=== PATIENT | female | born 1960 | race Caucasian/White ===

== ENCOUNTER → 2023-06-11 08:27 | Outpatient (REF) | payer OTHER, SELFPAY | LOC: HWWDC 08:27 | PROVIDERS: ATTENDING PHYSICIAN Nurse Practitioner Women's Health; FAMILY PHYSICIAN Family Medicine | DX: Z12.31 Encounter for screening mammogram for malignant neoplasm of breast (principal) | CPT/HCPCS: 77063; 77067 ==

== ENCOUNTER → 2023-07-05 15:45 | Outpatient (REF) | payer OTHER, SELFPAY | LOC: HWRAD 15:45 | PROVIDERS: ATTENDING PHYSICIAN Family Medicine | DX: M79.89 Other specified soft tissue disorders (principal) | CPT/HCPCS: 74176 ==

== ENCOUNTER → 2023-09-02 06:35 | Day surgery (SDC) | payer OTHER, SELFPAY | LOC: GI 06:35 | PROVIDERS: ATTENDING PHYSICIAN Internal Medicine Gastroenterology; FAMILY PHYSICIAN Family Medicine | DX: Z12.11 Encounter for screening for malignant neoplasm of colon (principal); K57.30 Diverticulosis of large intestine without perforation or abscess without bleeding; Q43.8 Other specified congenital malformations of intestine; K64.8 Other hemorrhoids; K29.70 Gastritis, unspecified, without bleeding; K20.90 Esophagitis, unspecified without bleeding; K44.9 Diaphragmatic hernia without obstruction or gangrene; K31.89 Other diseases of stomach and duodenum; R12 Heartburn; Z86.010 Personal history of colon polyps | CPT/HCPCS: 43239; G0105; 88305; 88342 ==

== ENCOUNTER 2023-09-09 06:07 | Day surgery (SDC) | payer OTHER, SELFPAY ==
[2023-09-09] VITALS (8 sets, daily range): BP systolic 123–135; BP diastolic 64–76; BMI 19.8
[2023-09-09] MEDS: NORMOSOL-R 1000 IV (07:24)
[2023-09-09] MEDS: TYLENOL 1000 MG PO (07:24)
--- NOTE | 2023-09-09 08:54 | W.SUR.PREOP ---
Pre-Operative Surgical Note
-
I have examined this patient prior to the performance of the scheduled procedure.
The patient's condition is unchanged from the time of the current History and
Physical and the patient is able to undergo the scheduled procedure.
--- NOTE | 2023-09-09 08:54 | W.IMMPOSTOP ---
Surgical Immed Post Op Note
-
Primary Surgeon: Nj Franklin MD
Assisting Surgeon: Vinod Jimenes, PGY 1
Pre-op Diagnosis: Right inguinal hernia
Post-op Diagnosis: Same
Procedure Performed: Open right inguinal hernia repair with mesh
Anesthesia Type: General
Specimen / Cultures: Right inguinal contents
Estimated Blood Loss: 1 cc
Complications: None
Operative Findings: Small direct inguinal hernia. No indirect components. No cord lipoma. Genital branch of the genitofemoral nerve, as well as the round ligament were identified and sacrificed.
--- NOTE | 2023-09-09 08:57 | OR.RPT ---
Operative Report
Operative Report
Patient Name: Chapis Baez
: 1960
Date of Operation: 09/09/2023
Preoperative Diagnosis: Reducible Inguinal hernia, right
Postoperative Diagnosis: Same
Procedure(s):
Open Inguinal Hernia Repair
Surgeon(s):
Dr. Franklin
Marketing Operations Analyst(s):
Vinod Jimenes, PGY1
Anesthesia: General
Estimated Blood Loss: 1 cc
Urine Output: None
Drains/Lines/Implants: 3 x 6 inch Bard Soft Mesh (uncoated macroporous polypropylene mesh) cut to size
Specimens: None
Indication for surgery: The patient has a history of groin pain and some asymmetry noted on exam and was found to have a left inguinal Hernia. Following review of therapeutic options they has elected to undergo an open repair
Operative Findings: Small direct inguinal hernia. No indirect components. No cord lipoma. Genital branch of the genitofemoral nerve, as well as the round ligament were identified and sacrificed. The floor reinforced with Bard soft mesh cut to
size.
Details of the operation:
After induction of general anesthesia, the patient was clipped, prepped and draped in the supine position. A team timeout was performed confirming administration of DVT prophylaxis, IV antibiotics and SCDs. The ASIS and pubic tubercle were marked
and an incision was chosen along the course of a skin line. The skin was anesthetized with Lidocaine. An incision was made through the skin line and dissection carried down through subcutaneous tissue and June's fascia. An X-Small Bishop wound
retractor was used to provide exposure. The external oblique fibers were then divided in the direction of travel. The ilioinguinal nerve was identified and preserved. Dissection was carried down to the floor, which revealed the following:
At the site of the indirect (internal) ring, the round ligament genital branch of the genitofemoral nerve as well as blood vessels were identified but no indirect hernia sac. These contents were individually identified, ligated and sacrificed and
passed off the field as specimen #1.
A cord lipoma was not identified.
The direct space, floor of the canal revealed a moderate weakness.
The floor of the canal was then reconstructed by first approximating the conjoined tendon to the shelving edge in a Bassini type fashion. We then placed a 6x3 in BARD soft uncoated polypropylene mesh trimmed to size and secured it in place with
interrupted 0-PDS sutures medially at the pubic tubercle, inferiorly along the inguinal ligament, laterally/superiorly in the conjoint tendon. Care was taken not to injure or entrap any nerves. The external oblique fibers were then closed using a
running 2-0 Vicryl suture. June's fascia was then closed with interrupted 3-0 Vicryl suture. The skin was closed in layers with interrupted 3-0 vicryl deep dermals followed by a running subcuticular 4-0 Monocryl followed by dermabond. The
patient returned to the Recovery Room in stable condition. Sponge and instrument counts were correct. No specimens sent to Pathology.
I was the attending physician and performed the procedure with no assistance. I was present for all portions of the case
Nj Franklin MD
== END 2023-09-09 10:16 | disposition home or self-care (01) ==
LOC: SDS 06:07
PROVIDERS: ATTENDING PHYSICIAN Surgery
DX: K40.90 Unilateral inguinal hernia, without obstruction or gangrene, not specified as recurrent (principal); Z88.2 Allergy status to sulfonamides
CPT/HCPCS: 49505; 88302

== ENCOUNTER → 2024-06-23 08:57 | Outpatient (REF) | payer OTHER, SELFPAY | LOC: HWWDC 08:57 | PROVIDERS: ATTENDING PHYSICIAN Nurse Practitioner Women's Health; FAMILY PHYSICIAN Family Medicine | DX: Z12.31 Encounter for screening mammogram for malignant neoplasm of breast (principal) | CPT/HCPCS: 77063; 77067 ==

== ENCOUNTER → 2024-08-09 10:51 | Outpatient (REF) | payer OTHER, SELFPAY | LOC: WDC 10:51 | PROVIDERS: ATTENDING PHYSICIAN Nurse Practitioner Women's Health; FAMILY PHYSICIAN Family Medicine | DX: R92.2 Inconclusive mammogram (principal); R92.333 Mammographic heterogeneous density, bilateral breasts | CPT/HCPCS: 76641 ==

== ENCOUNTER → 2025-02-26 08:22 | Outpatient (REF) | payer MEDICARE, SELFPAY | LOC: WDC 08:22 | PROVIDERS: FAMILY PHYSICIAN Family Medicine | DX: R92.8 Other abnormal and inconclusive findings on diagnostic imaging of breast (principal); N60.01 Solitary cyst of right breast | CPT/HCPCS: 76642 ==